=== PATIENT | male | born 2000 | race Caucasian/White ===

== ENCOUNTER 2022-12-29 19:43 | Emergency (ER) | payer BC ==
[~2022-12-29] VITALS: Ht 182.9 cm; Wt 104.3 kg
[2022-12-29 21:00] VITALS: O2SAT 98
[2022-12-29] MEDS ORDERED: HYDROXYZINE HCL25 MG PO (21:29)
== END 2022-12-29 21:53 | disposition home or self-care (01) ==
LOC: FSED 20:06
DX: R06.02 Shortness of breath (principal); R07.89 Other chest pain; F41.9 Anxiety disorder, unspecified; Z98.84 Bariatric surgery status
CPT/HCPCS: 93005; 99283